=== PATIENT | female | born 1965 | race Caucasian/White ===

== ENCOUNTER 2022-04-27 15:13 | Emergency (ER) | payer BC ==
--- NOTE | 2022-04-27 15:46 | ERPHSYRPT ---
- History of Present Illness Time Seen by Provider: 04/27/22 15:30 Source: patient, family, old records Exam Limitations: other (Confused) Patient Subjective Stated Complaint: PT stated "she was bucked from her horse.". PT states "I do not remember anything from this morning. I do not even know which horse I was on." Triage Nursing Assessment: Pt presented alert and confused. Pt able to follow simple commands. Pt has large hematoma noted to right knee. PT has tenderness noted to her right upper back. Pt pupils are perrla. Pt resting comfortably on the bed. Physician History: This is a 56-year-old white female who was riding a horse prior to arrival and fell off the horse. According to the patient's , the patient had a helmet on but was bucked off a horse. The events were reported to the patient's who brought her into the hospital for evaluation. Patient arrives with some confusion. She does not recall the events. She does not recall the horse she was riding on. She does have pain in her right shoulder, right lower leg and right knee anteriorly. She is able to move all her extremities. She does not have chest pain. She does not have abdominal pain. Occurred: just prior to arrival Reason for Fall: fell from height (Bucked off a horse) Injuries/Pain Location: head, neck (Right shoulder), upper extremity, lower extremity (Right knee and right lower leg) Loss of Consciousness: unsure Quality: aching Severity of Pain-Max: mild Severity of Pain-Current: mild Associated Symptoms (Fall): confusion, extremity injury (Right knee and right lower leg) Allergies/Adverse Reactions: No Known Drug Allergies Allergy (Verified 04/27/22 15:32) Home Medications: Aspirin [Aspirin EC] 81 mg PO DAILY 04/27/22 [History] Duloxetine HCl [Cymbalta] 60 mg PO DAILY 04/27/22 [History] Hx Tetanus, Diphtheria Vaccination/Date Given: Yes Hx Influenza Vaccination/Date Given: No Hx Pneumococcal Vaccination/Date Given: No Immunizations Up to Date: Yes Travel Risk - International Travel Have you traveled outside of the country in past 3 weeks: No - Coronavirus Screening Are you exhibiting any of the following symptoms?: No Close contact with a COVID-19 positive Pt in past 14-21 Days: No - Vaccine Status Have you recieved a Covid-19 vaccination: Yes Hat Former: Moderna - Vaccination Dates Date of 2cond Vaccination (if applicable): 2020 - Review of Systems Constitutional: No Symptoms Eyes: No Symptoms Ears, Nose, & Throat: No Symptoms Respiratory: No Symptoms Cardiac: No Symptoms Abdominal/Gastrointestinal: No Symptoms Genitourinary Symptoms: No Symptoms Musculoskeletal: Injury (Right knee and right lower leg), Joint Pain (Right shoulder) Skin: Other (Abrasion on the skin overlying the right anterior tibia) Neurological: Other (Confusion) Psychological: No Symptoms Endocrine: No Symptoms Hematologic/Lymphatic: No Symptoms Immunological/Allergic: No Symptoms All Other Systems: Reviewed and Negative - Past Medical History Pertinent Past Medical History: Yes Psycho-Social History: Anxiety - Past Surgical History Past Surgical History: Yes Other Surgical History: c section x 2 - Social History Smoking Status: Never smoker Exposure to second hand smoke: No Drug Use: none Patient Lives Alone: No - Nursing Vital Signs Nursing Vital Signs: Initial Vital Signs Temperature 97.5 F 04/27/22 15:20 Pulse Rate 91 H 04/27/22 15:20 Respiratory Rate 18 04/27/22 15:20 Blood Pressure 141/82 04/27/22 15:20 O2 Sat by Pulse Oximetry 99 04/27/22 15:20 Pain Scale Pain Intensity [Right Knee] 8 Pain Intensity 4 - More Coma Score Best Eye Response ([place]): (4) open spontaneously Best Verbal Response ([place]): (5) oriented Best Motor Response ([place]): (6) obeys commands [place] Total: 15 - Physical Exam General Appearance: no apparent distress, alert, anxiety Head Injury: no evidence of injury Eye Exam: PERRL/EOMI, eyes nml inspection ENT Exam: airway nml, nml ext.inspection, No evidence of ENT injury, No dental injury Neck Exam: supple, trachea midline, full range of motion, normal alignment, normal inspection Respiratory/Chest Exam: normal breath sounds, No chest tenderness, No respirator y distress, No ecchymosis, No crepitus Cardiovascular Exam: normal heart sounds, regular rate/rhythm Gastrointestinal Exam: soft, normal bowel sounds, No tenderness Rectal Exam: not done Back Exam: normal inspection, normal range of motion, No CVA tenderness, No vertebral tenderness Extremity Exam: normal range of motion, pelvis stable, evidence of injury, tenderness (Right anterior knee and abrasion right lower leg skin overlying tibia) Neurologic Exam: alert, cooperative, athletic coordinator II-XII nml as tested, confusion (Her initial examination showed oriented to self and place but was not oriented to date and time) Skin Exam: normal color, warm, dry SpO2 Interpretation: normal SpO2: 99 O2 Delivery: Room Air - Course Nursing assessment & vital signs reviewed: Yes Ordered Tests: Active Orders 24 hr Category Date Time Status CERVICAL SPINE WO CONTRAST [CT] Stat Exams 04/27/22 15:25 Completed FEMUR Stat Exams 04/27/22 16:06 Completed HEAD WITHOUT CONTRAST [CT] Stat Exams 04/27/22 15:25 Completed KNEE (3 VIEWS) Stat Exams 04/27/22 15:26 Completed LOWER LEG Stat Exams 04/27/22 15:42 Completed SHOULDER Stat Exams 04/27/22 15:57 Completed THORACIC SPINE W/O CONTRAST [CT] Stat Exams 04/27/22 15:25 Completed CBC W DIFF Stat Lab 04/27/22 17:38 Ordered CMP Stat Lab 04/27/22 17:38 Ordered CULTURE,URINE Stat Lab 04/27/22 15:40 Received PT INR [PROTIME WITH INR] Stat Lab 04/27/22 17:38 Ordered UA W/RFX CULTURE Stat Lab 04/27/22 15:40 Completed Lab/Rad Data: Laboratory Results 04/27/22 Range/Units 15:40 Urinalys Dipstick Clnc MAIN LAB Urine Color YELLOW (YELLOW) Urine Appearance CLEAR (CLEAR) Urine pH 5.5 (5-6) Ur Specific [place] >=1.030 (1.005-1.025) POC Urine Protein Conf 100 (Negative) Urine Ketones NEGATIVE (NEGATIVE) Urine Nitrite NEGATIVE (NEGATIVE) Urine Bilirubin SMALL (NEGATIVE) Urine Urobilinogen 0.2 (0-1) mg/dL Urine Leukocytes TRACE (NEGATIVE) Urine WBC (Auto) 3-5 (0-5) /HPF Urine RBC (Auto) 6-10 (0-2) /HPF U Hyaline Cast (Auto) 6-10 (0-2) /LPF U Epithel Cells (Auto) FEW (FEW) /HPF Urine Bacteria (Auto) RARE (NEGATIVE) /HPF Urine RBC TRACE-INTACT (0-5) Solomon/ul Urine Mucus (Auto) SLIGHT (NEGATIVE) /HPF Ur Culture Indicated? YES Urine Glucose NEGATIVE (NEGATIVE) mg/dL - Progress Progress: improved, pain not gone completely, re-examined Progress Note: 04/27/22 17:20 The patient and patient's spouse want her to be sent to [place] if she needs to be transferred to another facility. CAT scan of the cervical spine without contrast shows a nondisplaced superior endplate acute fracture of C7 without spinal or foraminal compromise. CAT scan of the head shows no acute intracranial abnormality. CAT scan of the thoracic spine without contrast shows superior endplate T11 with minimal contact cave deformity either remote fracture versus Schmorls node. X-ray of right shoulder shows no acute fracture or dislocation X-ray of the right femur shows no acute fracture or dislocation X-ray of the right knee shows no acute fracture or dislocation. There is a tiny nonspecific effusion and mild anterior soft tissue swelling present X-ray of the right lower leg shows no acute fracture or dislocation. 04/27/22 17:46 Medical decision making: This patient was reviewed with [facility] in [place]. The criteria of this patient fit auto acceptance as a trauma level 2. Only method of transportation available was [facility]. The patient wants to go to [facility] for further evaluation and management. I did not have to speak with the physician but the accepting physician is Dr. Avi Kulkarnitrauma service Counseled pt/family regarding: diagnosis, rad results - Departure Departure Disposition: Home Clinical Impression: Fall with significant injury, Closed cervical spine fracture Condition: Stable Critical Care Time: Yes Critical Care Time(excluding separately billable procedures): Critical 30-74 mi ns (30 minutes) Referrals: EILEEN MARTINEZ [Primary Care Provider] - Follow up/PCP as directed
[2022-04-27 16:25] LABS: Appearance CLEAR (CLEAR); Bacteria RARE /HPF (NEGATIVE); Bilirubin SMALL (NEGATIVE); Dipstick done @ ? MAIN LAB; Epithelial Cells FEW /HPF (FEW); Glucose NEGATIVE (NEGATIVE); Ketones NEGATIVE (NEGATIVE); Mucus SLIGHT /HPF (NEGATIVE); Nitrite NEGATIVE (NEGATIVE); Ph 5.5 (5-6); Protein,Urine Dip 100 (Negative); RBC TRACE-INTACT Ery/ul (0-5); Specific Gravity >=1.030 (1.005-1.025); Urobilinogen 0.2 mg/dL (0-1)
--- NOTE | 2022-04-27 16:27 | XRAY ---
Indication: Status post fall off horse. Loss of consciousness. Multiple contiguous axial images obtained through the head without contrast. Comparison: None Normal appearing brain parenchyma, ventricles, and bony calvarium for patient's age. Visualized paranasal sinuses and mastoid air cells are clear. Impression: Normal CT head without contrast exam.
--- NOTE | 2022-04-27 16:29 | XRAY ---
Indication: Status post fall off horse. Loss of consciousness. Multiple contiguous axial images obtained through the cervical spine. Sagittal and coronal reformatted images obtained. Comparison: None Axial images demonstrates nondisplaced superior endplate acute fracture of C7 without spinal or foraminal compromise. No other fracture, suspicious bony lesions, or spinal canal stenosis. Mild multilevel bilateral degenerative facet arthropathy, left greater than right. Sagittal and coronal reformatted images demonstrates normal cervical alignment. The C7 superior endplate fracture demonstrates less than 25% height loss. Remaining vertebral body heights/disc spaces maintained. Normal appearing craniocervical junction. Visualized noncontrasted soft tissues are unremarkable. CT head and CT thoracic spine reported separately. Impression: 1. Nondisplaced C7 superior endplate acute fracture with less than 25% height loss. 2. Incidental mild multilevel bilateral degenerative facet arthropathy.
[2022-04-27 16:32] LABS: Urine Cultured Indicated? YES
--- NOTE | 2022-04-27 16:35 | XRAY ---
Indication: Status post fall off horse. Loss of consciousness. Multiple contiguous axial images obtained through the thoracic spine. Sagittal and coronal reformatted images obtained. Comparison: None CT cervical spine reported separately. Axial images negative for fracture, suspicious bony lesions, or spinal canal stenosis. Mild T10-T11 opposing endplate degenerative endplate spurring/sclerosis. Sagittal and coronal reformatted images demonstrates normal thoracic alignment. Superior endplate T11 demonstrates minimal concave deformity either remote fracture versus Schmorl node. Remaining vertebral body heights/disc spaces maintained. Visualized noncontrasted soft tissues demonstrates small left hilar calcified nodes, minimal bilateral lung dependent atelectasis, and nonobstructing right renal punctate calculus. Impression: 1. T10-T11 degenerative changes. 2. T11 superior endplate minimal concave deformity either remote fracture versus Schmorl node. 3. Remaining CT thoracic spine is negative. 4. Incidental nonobstructing right renal micro-calculus and old granulomatous disease.
--- NOTE | 2022-04-27 16:37 | XRAY ---
Indication: Pain following fall off horse. Comparison: None 3 view right shoulder demonstrates minimal AC degenerative arthropathy. No other bony, articular, or soft tissue abnormalities.
--- NOTE | 2022-04-27 16:37 | XRAY ---
Indication: Pain following fall off horse. Comparison: None 3 view right knee demonstrates minimal medial joint space narrowing, tiny suprapatella/tibial tuberosity spurring, mild anterior soft tissue swelling, tiny nonspecific effusion, and incidental small posterior fabella. No other bony, articular, or soft tissue abnormalities.
--- NOTE | 2022-04-27 16:39 | XRAY ---
Indication: Pain following fall off horse. Comparison: None 2 view right lower leg interpreted with knee exam of the same day demonstrates tiny bone island distal tibia. No other bony, articular, or soft tissue abnormalities.
--- NOTE | 2022-04-27 16:41 | XRAY ---
Indication: Pain following fall off horse. Comparison: None 2 view right femur obtained. No bony, articular, or soft tissue abnormalities. Knee reported separately.
[2022-04-27 18:05] LABS: Absolute Neutrophil Ct (ANC) 12.77 x10^3/uL (1.4-6.9); Basophil (Absolute #) 0.07 x10^3/uL (0-0.4); Eosinophil % 0.3 % (0.00-5.0); Eosinophil (Absolute #) 0.04 x10^3/uL (0-0.5); Hematocrit 40.7 % (35-47); Hemoglobin 14.1 g/dL (12.0-16.0); Lymphocyte (Absolute #) 1.28 x10^3/uL (1.0-4.6); Lymphocytes % 8.4 % (24.0-44.0); Mean Cell Volume 92.1 fL (78-100); Mean Corpuscular Hemoglobin 31.9 pg (26-32); Mean Corpuscular Hgb Concent. 34.6 g/dL (32-36); Monocyte (Absolute #) 0.98 x10^3/uL (0.0-1.3); Monocytes % 6.4 % (0.0-12.0); Neutrophil % 83.6 % (36.0-66.0); Platelet Count 311 x10^3/uL (150-450); Red Blood Count 4.42 x10^6/uL (4.1-5.4); Red Cell Distribution Width 12.2 % (11.5-14.0); White Blood Count 15.3 x10^3/uL (4.0-10.5)
[2022-04-27 18:20] LABS: ALBUMIN 4.7 g/dL (3.5-5.0); ALKALINE PHOSPHATASE 77 U/L (38-126); ANION GAP 8.7 MEQ/L (5-15); BLOOD UREA NITROGEN 10 mg/dL (7-17); CHLORIDE 101 mmol/L (98-107); Calcium 9.7 mg/dL (8.4-10.2); Carbon Dioxide 33 mmol/L (22-30); EST GLOMERULAR FILTRATION RATE > 60.0 ML/MIN; Glucose 98 mg/dL (74-106); PROTIME 10.6 SECONDS (9.4-12.5); Potassium 4.3 mmol/L (3.5-5.1); SGOT/AST 44 U/L (14-36); SGPT/ALT 30 U/L (0-35); SODIUM 139 mmol/L (137-145); Total Protein 7.7 g/dL (6.3-8.2)
[2022-04-27 18:21] VITALS: BP 138/70; PULSE 76; O2SAT 98
== END 2022-04-27 18:51 | disposition short-term general hospital (02) ==
LOC: ED 15:13
DX: S12.601A Unspecified nondisplaced fracture of seventh cervical vertebra, initial encounter for closed fracture (principal); V80.010A Animal-rider injured by fall from or being thrown from horse in noncollision accident, initial encounter; Y93.52 Activity, horseback riding; R41.0 Disorientation, unspecified; M25.511 Pain in right shoulder; M79.661 Pain in right lower leg; M25.561 Pain in right knee; Z79.899 Other long term (current) drug therapy
CPT/HCPCS: 36415; 70450; 72125; 72128; 73030; 73552; 73562; 73590; 80053; 81015; 85025; 85610; 87086; 99284; 99291